=== PATIENT | female | born 1965 | race African-American/Black ===

== ENCOUNTER 2021-02-27 10:21 | Emergency (ER) | payer OTHER ==
[~2021-02-27] VITALS: Ht 157.5 cm; Wt 61.2 kg
[2021-02-27 11:10] LABS: BASOPHILS 0.5 % (0.0-2.0); EOSINOPHILS 1.2 % (0.0-3.0); HEMATOCRIT 41.1 % (37.0-47.0); HEMOGLOBIN 13.5 gm/dL (12.0-15.0); LYMPHOCYTES 22.4 % (24.0-44.0); MCH 30.1 pg (26.0-34.0); MCHC 32.9 g/dL (28.0-37.0); MCV 91.5 fL (80.0-100.0); MONOCYTES 8.2 % (1.0-8.0); PLATELET COUNT 292 thou/uL (150-400); POLYS 67.7 % (36.0-66.0); RBC 4.49 mil/uL (4.20-5.00); RDW 14.1 % (10.5-14.5)
[2021-02-27 11:22] LABS: CALCIUM 9.3 mg/dL (8.5-10.1); CREATININE 0.9 mg/dL (0.6-1.0); POTASSIUM 3.6 mmol/L (3.5-5.1)
[2021-02-27 11:33] LABS: ALBUMIN 3.8 g/dL (3.4-5.0); TOTAL BILIRUBIN 0.5 mg/dL (0.2-1.0); TOTAL PROTEIN 7.2 g/dL (6.4-8.2)
[2021-02-27 12:09] VITALS: BP 144/83
[2021-02-27] MEDS ORDERED: NORVASC5 MG PO (12:24)
--- NOTE | 2021-02-28 07:39 | EKG ---
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
== END 2021-02-27 12:21 | disposition home or self-care (01) ==
LOC: ER 10:21
PROVIDERS: Emergency Medicine
DX: I10 Essential (primary) hypertension (principal); Z88.0 Allergy status to penicillin